=== PATIENT | female | born 1960 | race Two or more races ===

== ENCOUNTER → 2024-09-03 | Outpatient (CLI) | payer OTHER, SELFPAY ==
[2024-09-03 10:35] LABS: Collection Type, Urine Clean Catch
[2024-09-03 11:15] LABS: Glucose Estimated Average 120 mg/dL (80-131); Hemoglobin A1C 5.8 % Hgb (4.8-6.0)
[2024-09-03 11:19] LABS: Bacteria,Urine Rare; Bilirubin,Urine Negative (Negative); Blood,Urine Negative (Negative); Clarity,Urine Clear (Clear/Hazy); Color,Urine Colorless (Lt Yel-Yel); Glucose, Urine Negative (Negative); Ketones,Urine Negative (Negative); Leukocyte Esterase,Urine Positive (Negative); Nitrite,Urine Negative (Negative); PH,Urine 6.5 (5.0-7.0); Protein,Urine Negative (Neg - Trace); RBC,Urine 1 /hpf (0-3); Specific Gravity,Urine 1.007 (1.001-1.035); Squamous Epithelial Cell,Urine 1 /hpf (0-5); Urobilinogen,Urine Negative mg/dL (0.0-1.0); WBC,Urine 5 /hpf (0-5)
[2024-09-03 11:20] LABS: Follicle Stimulating Hormone 95.16 mIU/mL (See Note)
[2024-09-03 11:22] LABS: Alanine Aminotransferase 20 U/L (10-49); Albumin, Serum 4.3 gm/dL (3.4-4.8); Albumin/Globulin Ratio 1.9 (1.2-2.2); Alkaline Phosphatase 57 U/L (46-116); Anion Gap 7 (7-16); Aspartate Amino Transferase 17 U/L (0-34); BUN/Creatinine Ratio 15 Ratio (12-20); Bilirubin,Total 0.5 mg/dL (0.3-1.2); Blood Urea Nitrogen 12 mg/dL (9-23); Calcium 9.6 mg/dL (8.3-10.6); Calcium (Corrected) 9.6 mg/dL (8.5-10.1); Carbon Dioxide 28.7 mMol/L (20.0-31.0); Cardiac Risk Estimate 2.1 RATIO (3.7-5.6); Chloride 106 mMol/L (98-107); Cholesterol 118 mg/dL (132-200); Creatinine (Component) 0.8 mg/dL (0.6-1.3); Globulin 2.3 gm/dL (2.3-3.5); Glucose 93 mg/dL (74-106); HDL Cholesterol 56 mg/dL (40-60); LDL Cholesterol,Calculated 41 mg/dL (0-130); Osmolality,Calculated 282 (275-295); Potassium 4.1 mMol/L (3.4-5.1); Sodium 142 mMol/L (136-145); Total Protein 6.6 gm/dL (5.7-8.2); Triglycerides 105 mg/dL (30-150); eGFR > 60 See Note
[2024-09-21 06:40] LABS: Estrogen, Total, Serum* 56 pg/mL; Luteinizing Hormone* 33.1 mIU/mL; Progesterone,LC/MS* <0.1 ng/mL
== END | disposition home or self-care (01) ==
LOC: COPL 09:41
PROVIDERS: PCP Internal Medicine; Referring Provider Internal Medicine; Visit Provider Internal Medicine
DX: E11.9 Type 2 diabetes mellitus without complications (principal); E78.5 Hyperlipidemia, unspecified; I10 Essential (primary) hypertension
CPT/HCPCS: 36415; 80053; 80061; 81001; 82672; 83001; 83002; 83036; 84144

== ENCOUNTER 2024-10-25 07:57 | Emergency (ER) | payer OTHER, SELFPAY ==
[2024-10-25 08:09] VITALS: BP 107/66; PULSE 78; RESP 17; TEMP 36.8; O2SAT 97
--- NOTE | 2024-10-25 08:12 | XR_ITS ---
Examination: CT pelvis without intravenous contrast. 2-D sagittal and coronal reconstructions. Date and time of exam:October 25, 2024 0837 hours INDICATIONS: Patient fell today with injury of the pelvis, sacrococcygeal pain CTDI: vol (mGy) :8.22 DLP: (mGycm) : 244 Technique: Multiple 3 mm axial sections of the pelvis have been obtained with the 64 slice high resolution scanner. 2-D sagittal and coronal reconstructions. Low dose protocols were performed. One or more of the following dose reduction techniques were used; automated exposure control, adjustment of the mA and/or KV according to patient size, use of iterative reconstruction technique. Findings: Significant osteopenia Fracture with angulation fifth sacral segment without significant displacement, sagittal image 150 Iliac bones acetabular regions anterior rami and hips appear intact IMPRESSION: Fracture with angulation fifth sacral segment
--- NOTE | 2024-10-25 08:12 | XR_ITS ---
Examination: Knee, left , 3 views Technique: Knee AP, lateral, oblique 3 views Date and time of exam: October 25, 2024 0947 hours INDICATIONS: Patient fell 5 days ago with injury to the knee, knee pain. FINDINGS: No fracture or dislocation No foreign body IMPRESSION: No fracture or dislocation
--- NOTE | 2024-10-25 10:04 | PD.EDFALL ---
ED Fall Injury RME/HPI General Chief Complaint: Fall Stated Complaint: FALL 2 DAYS AGO; PAIN L) KNEE & LOWER BACK Time Seen by Provider: 10/25/24 08:12 Arrival date/time: 10/25/24 07:57 64-year-old female presents emergency department today with complaints of ground-level fall 2 days ago patient reports pain to her left knee as well as her coccyx region. Patient reports no abdominal pain no fever no dysuria no hematuria Limitations: no limitations Related Data Home Medications ?Medication ?Instructions ?Recorded ?Confirmed alprazolam 1 mg tablet (Xanax) 0.25 mg PO QID PRN ANXIETY #0 tabs 01/09/14 levothyroxine 100 mcg tablet 100 mcg PO ACBR THYROID #0 tabs 01/09/14 (Synthroid) methylphenidate HCl 20 mg tablet 40 mg PO BID #0 tabs 01/09/14 (Ritalin) bupropion HCl 150 mg tablet,12 hr 150 mg PO QDAY ##0 05/19/14 sustained-release (Wellbutrin SR) risperidone 0.25 mg tablet 0.25 mg PO BID #0 tabs 05/26/14 (Risperdal) diphenhydramine HCl 50 mg capsule 50 mg PO Q6HR PRN SHIVERING #0 caps 08/17/14 Previous Rx's ?Medication ?Instructions ?Recorded hydrocodone 5 mg-acetaminophen 325 1 tab PO BID PRN pain #10 tabs 10/25/24 mg tablet ibuprofen 600 mg tablet 600 mg PO Q6H #30 tabs 10/25/24 Allergies Allergy/AdvReac Type Severity Reaction Status Date / Time latex Allergy Intermediate RASH Verified 10/25/24 08:04 risperidone Allergy Intermediate SHAKING Verified 10/25/24 08:04 Adhesives Allergy Mild REDNESS Uncoded 10/25/24 08:04 Review of Systems Review of Systems Systems Reviewed: All systems reviewed, normal except as documented Constitutional Constitutional: Reports system reviewed and no additional complaints, except as documented, Denies fever(s) and Denies headache(s) Eyes Eyes: Reports system reviewed and no additional complaints, except as documented and Denies blurry vision ENT Ears, Nose, Mouth, and Throat: Reports system reviewed and no additional complaints, except as documented, Denies headache(s), Denies nasal congestion and Denies nasal discharge Cardiovascular Cardiovascular: Reports system reviewed and no additional complaints, except as documented, Denies chest pain and Denies dyspnea Respiratory Respiratory: Reports system reviewed and no additional complaints, except as documented, Denies chest congestion, Denies cough and Denies dyspnea Gastrointestinal Gastrointestinal: Reports system reviewed and no additional complaints, except as documented and Denies abdominal pain Musculoskeletal Musculoskeletal: Reports system reviewed and no additional complaints, except as documented, Reports arthralgias and Denies deformity Integumentary/Breasts Skin/Breast: Reports system reviewed and no additional complaints, except as documented and Denies rash Neurologic Neurologic: Reports system reviewed and no additional complaints, except as documented, Reports as per HPI and Denies headache(s) Past Medical History Social History SMOKING STATUS: Never smoker ED Exam General Limitations: Present no limitations General appearance: Present alert and in no apparent distress Head Head exam: Present atraumatic, normocephalic and normal inspection Eye Eye exam: Present normal appearance, PERRL and EOMI; Absent conjunctival injection ENT ENT exam: Present normal exam, normal oropharynx and mucous membranes moist Neck Neck exam: Present normal inspection, full ROM and trachea midline Chest Chest inspection: Present normal inspection and symmetric chest wall rise Respiratory Respiratory exam: Present normal lung sounds bilaterally Cardiovascular Cardiovascular exam: Present regular rate, normal rhythm and normal heart sounds Abdominal Exam Abdominal exam: Present soft and normal bowel sounds; Absent distention or tenderness Extremities Exam Extremities exam: Present full ROM, tenderness and normal capillary refill; Absent pedal edema, joint swelling or calf tenderness Back Exam Back exam: Present normal inspection and full ROM Back 1 view image:  1. Pain Neurological Exam Neurological exam: Present alert, oriented X3 and CN II-XII intact Psychiatric Psychiatric exam: Present normal affect and normal mood Skin Skin exam: Present warm, dry, intact and normal color Course Quality Measures none Orders Category Date Time Status CT pelvis wo con Stat Exams 10/25/24 08:12 Completed XR knee LT 3V Stat Exams 10/25/24 08:12 Completed Vital Signs Vital signs: Vital Signs Temperature 98.2 F 10/25/24 08:09 Pulse Rate 78 10/25/24 08:09 Respiratory Rate 17 10/25/24 08:09 Blood Pressure 107/66 10/25/24 08:09 Pulse Oximetry (%) 97 10/25/24 08:09 Oxygen Delivery Method Room Air 10/25/24 08:09 O2 saturation 97% room air within the limits Fall MDM Narrative MDM Narrative:: 64-year-old female presents emergency department today with complaints of ground-level fall 2 days ago patient reports pain to her left knee as well as her coccyx region. Patient reports no abdominal pain no fever no dysuria no hematuria On exam patient well-appearing patient does not appear ill or toxic Imaging of the left knee and pelvis obtained patient does have sacral fracture consistent with patient's symptoms x-ray is negative Patient discharged home with pain medication Patient discharged home in no distress to follow-up with primary care doctor in the next 24 to 48 hours and for any worsening symptoms to return to the ER immediately Patient data External records reviewed:: [facility] previous records Clinical information provided by:: patient Social determinants that could affect healthcare access:: none Patient has the following chronic illnesses:: See history How is presenting disease/condition affected by chronic disease/condition?: uneffected by Evaluation data The following diagnostics were reviewed and interpreted by me:: radiology exam(s) Lab and/or radiology exams considered but not ordered:: Radiology obtain Interpretation Summary: Reviewed by me Medications / Prescriptions Medications or Prescriptions considered but not ordered:: Given Medication administrations:: Given Consultations Consultation(s) initiated? (list below): No Diagnosis Fall Differential Diagnosis: other (Coccyx fracture, knee sprain, knee fracture) Most likely diagnosis given after review of the tests above:: Coccyx fracture, knee sprain Admission Indicated Admission indicated?: not indicated Admission Request Was there a request for admission?: No Disposition Plan Disposition Plan: Discharge Discharge Attestation Discharge Attestation: The patient and all family members were given an opportunity to ask questions and understood the discharge instructions. Discharge instructions specifically effects, indications for sooner follow up or return to the emergency department, and the expected course of current diagnosis. Patient condition: Stable Discharge Plan Plan Patient Disposition: HOME (Self Care) Disposition Comment: Stable Prescriptions/Referrals Prescriptions/Med Rec: New hydrocodone-acetaminophen 5-325 mg tablet 1 tab PO BID MDD 10 PRN (Reason: pain) Qty: 10 0RF ibuprofen 600 mg tablet 600 mg PO Q6H Qty: 30 0RF No Action alprazolam [Xanax] 1 MG tablet 0.25 mg PO QID PRN (Reason: ANXIETY) Qty: 0 levothyroxine [Synthroid] 100 MCG tablet 100 mcg PO ACBR Qty: 0 methylphenidate HCl [Ritalin] 20 MG tablet 40 mg PO BID Qty: 0 bupropion HCl [Wellbutrin SR] 150 MG tablet extended release 12 hr 150 mg PO QDAY Qty: 0 risperidone [Risperdal] 0.25 MG tablet 0.25 mg PO BID Qty: 0 diphenhydramine HCl 50 MG capsule 50 mg PO Q6HR PRN (Reason: SHIVERING) Qty: 0 Referrals: Rowdy Valdez MD [Primary Care Provider] - 10/26/24 Problem List Clinical Impression: Closed fracture of sacrum Patient/Caregiver Discharge Instructions Education Materials: How Bones Heal Additional Instructions: Please follow up with your primary care doctor in the next 24-48hrs for any worsening symptoms return here immediately Print Language: Mozambican Stand Alone Forms: Chelle Award Info., Patient Portal Info Letter PA/EPIC APPLICATION COORDINATOR Supervising Physician PA/EPIC APPLICATION COORDINATOR Supervising Physician: Dr. cruz
== END 2024-10-25 11:05 | disposition home or self-care (01) ==
PROVIDERS: Emergency Provider Family Medicine; PCP Internal Medicine
DX: S32.10XA Unspecified fracture of sacrum, initial encounter for closed fracture (principal); M25.562 Pain in left knee; W18.30XA Fall on same level, unspecified, initial encounter
CPT/HCPCS: 72192; 73562; 99284

== ENCOUNTER → 2024-12-21 | Outpatient (CLI) | payer OTHER, SELFPAY ==
--- NOTE | 2024-12-21 10:35 | XR_ITS ---
Examination: Knee, left , 3 views Technique: Knee AP, lateral, oblique 3 views Date and time of exam: December 21, 2024 1139 hours INDICATIONS: Patient fell 15 days ago with injury to the knee, knee pain. FINDINGS: No fracture or dislocation No foreign body IMPRESSION: No fracture or dislocation
== END | disposition home or self-care (01) ==
PROVIDERS: PCP Internal Medicine; Referring Provider Internal Medicine; Visit Provider Internal Medicine
DX: M25.562 Pain in left knee (principal)
CPT/HCPCS: 73562

== ENCOUNTER → 2025-02-17 | Outpatient (CLI) | payer OTHER, SELFPAY ==
[2025-02-17 10:59] LABS: Collection Type, Urine Clean Catch
[2025-02-17 11:16] LABS: Basophils # (Auto) 0.0 Thou/mm3 (0.0-0.2); Basophils % (Auto) 0 % (0-2.5); Eosinophils # (Auto) 0.2 Thou/mm3 (0.0-0.5); Eosinophils % (Auto) 2 % (0-10); Hematocrit 43.7 % (36.0-46.0); Hemoglobin 15.1 g/dL (12.0-16.0); Immature Granulocytes Auto 0.03 Thou/mm3 (0.00-0.00); Lymphocytes # (Auto) 3.4 Thou/mm3 (1.0-4.8); Lymphocytes % (Auto) 41 % (10-50); Mean Corpuscular HGB Conc 34.6 g/dl (31.0-37.0); Mean Corpuscular Hemoglobin 31.8 pg (25.0-35.0); Mean Corpuscular Volume 92 fL (80-100); Monocytes # (Auto) 0.7 Thou/mm3 (0.0-0.8); Monocytes % (Auto) 8 % (0-12); Neutrophils # (Auto) 4.0 Thou/mm3 (1.8-7.7); Neutrophils % (Auto) 48 % (37-80); Nucleated Red Blood Cell # 0.00 Thou/mm3 (0.00-0.00); Nucleated Red Blood Cell % 0 /100 WBC (0); Platelet Count 191 Thou/mm3 (140-440); RDW Standard Deviation 40.5 fL (36.4-46.3); Red Blood Count 4.75 Miln/mm3 (4.00-5.20); White Blood Count 8.2 Thou/mm3 (3.6-11.0)
[2025-02-17 11:26] LABS: Bilirubin,Urine Negative (Negative); Blood,Urine Negative (Negative); Clarity,Urine Clear (Clear/Hazy); Color,Urine Colorless (Lt Yel-Yel); Glucose, Urine Negative (Negative); Ketones,Urine Negative (Negative); Leukocyte Esterase,Urine Positive (Negative); Nitrite,Urine Negative (Negative); PH,Urine 7.0 (5.0-7.0); Protein,Urine Negative (Neg - Trace); RBC,Urine < 1 /hpf (0-3); Specific Gravity,Urine 1.007 (1.001-1.035); Squamous Epithelial Cell,Urine 1 /hpf (0-5); Urobilinogen,Urine Negative mg/dL (0.0-1.0); WBC,Urine 1 /hpf (0-5)
[2025-02-17 11:55] LABS: Alanine Aminotransferase 25 U/L (10-49); Albumin, Serum 4.5 gm/dL (3.4-4.8); Albumin/Globulin Ratio 1.9 (1.2-2.2); Alkaline Phosphatase 55 U/L (46-116); Anion Gap 9 (7-16); Aspartate Amino Transferase 20 U/L (0-34); BUN/Creatinine Ratio 11 Ratio (12-20); Bilirubin,Total 0.7 mg/dL (0.3-1.2); Blood Urea Nitrogen 10 mg/dL (9-23); Calcium 10.3 mg/dL (8.3-10.6); Calcium (Corrected) 10.3 mg/dL (8.5-10.1); Carbon Dioxide 29.0 mMol/L (20.0-31.0); Chloride 103 mMol/L (98-107); Creatinine (Component) 0.9 mg/dL (0.6-1.3); Globulin 2.4 gm/dL (2.3-3.5); Glucose 97 mg/dL (74-106); Osmolality,Calculated 280 (275-295); Potassium 5.1 mMol/L (3.4-5.1); Sodium 141 mMol/L (136-145); Thyroid Stimulating Hormone 3.88 uIU/mL (0.55-4.78); Total Protein 6.9 gm/dL (5.7-8.2); eGFR > 60 See Note
[2025-02-17 14:25] LABS: Cholesterol 123 mg/dL (132-200); Triglycerides 122 mg/dL (30-150)
[2025-02-17 14:56] LABS: Cardiac Risk Estimate 2.1 RATIO (3.7-5.6); HDL Cholesterol 58 mg/dL (40-60); LDL Cholesterol,Calculated 41 mg/dL (0-130)
[2025-02-17 15:02] LABS: Glucose Estimated Average 128 mg/dL (80-131); Hemoglobin A1C 6.1 % Hgb (4.8-6.0)
== END | disposition home or self-care (01) ==
LOC: COPL 10:13
PROVIDERS: PCP Internal Medicine; Referring Provider Internal Medicine; Visit Provider Internal Medicine
DX: Z00.00 Encounter for general adult medical examination without abnormal findings (principal); E11.9 Type 2 diabetes mellitus without complications; I10 Essential (primary) hypertension; E78.5 Hyperlipidemia, unspecified; E03.9 Hypothyroidism, unspecified
CPT/HCPCS: 36415; 80053; 80061; 81001; 83036; 84443; 85025

== ENCOUNTER → 2025-03-16 | Outpatient (CLI) | payer OTHER, SELFPAY ==
--- NOTE | 2025-03-16 12:20 | XR_ITS ---
Examination: Bone densitometry Date and time of exam:March 16, 2025, 1228 hours INDICATIONS: Menopause age 47, diagnosis diabetes, levothyroxine 49 years Technique: Lumbar spine and hip total bone mineralization values of an calculated. Peak reference and age match control results have been displayed. Findings: Lumbar spine total bone mineralization is1.075 gm/cm2. This is 0.3 standard deviations above peak reference. This is 2. standard deviations above age-matched controls. Hip total bone mineralization is 1.011 gm/cm2 This is 0.4 standard deviations above peak reference. This is 1.5 standard deviations above age-matched controls Impression: There is normal mineralization based on lumbar spine measurements. There is normal mineralization based on hip measurements Lumbar mineralization is increased 2.4% compared with March 14, 2022 Hip mineralization is decreased 0.4% compared with 03/14/2022
== END | disposition home or self-care (01) ==
LOC: CDIM 11:47
PROVIDERS: Referring Provider Internal Medicine; Visit Provider Internal Medicine
DX: M81.0 Age-related osteoporosis without current pathological fracture (principal)
CPT/HCPCS: 77080

== ENCOUNTER → 2025-03-29 | Outpatient (CLI) | payer OTHER, SELFPAY ==
--- NOTE | 2025-03-29 10:30 | XR_ITS ---
Exam: MRI knee without contrast, left Date and time of exam: March 29, 2025 1039 hours INDICATIONS: Patient fell October 29, 2024 with injury to the knee followed bilateral posterior knee pain joint locking swelling stiffness Technique: Multiple axial, coronal, and sagittal sections on the knee have been obtained. T2-Weighted sagittal, fat-suppressed images, TR 3,500, TE 62, T2 weighted coronal fat-saturated images, TR 3,500, TE 62 Proton density sagittal sections, TR 1800, TE 31. T-1 weighted coronal images, TR 524, TE 13.0 Findings: Medial meniscus anterior horn intact. Medial meniscus, body intact. Posterior horn medial meniscus horizontal linear tear communicating inferior articular surface. Lateral meniscus anterior horn is intrasubstance degeneration intact Lateral meniscus, body complex tear replacing the body of the lateral meniscus Posterior horn lateral meniscus complex tear replacing the body of the posterior meniscus Anterior cruciate ligament mild sprain Posterior cruciate ligament appears intact. Knee effusion is moderate with suprapatellar joint plica Quadriceps and patellar tendons appear intact. There is no evidence of tendinosis. Inflammatory change or fracture of Hoffa's fat pad is not seen. Medial patellar facet demonstrates moderate thinning. Lateral patellar facet cartilage demonstrates moderate thinning. Trochlear cartilage demonstrates moderate thinning. Marrow signal adequate. Medial collateral ligament appears intact. No meniscocapsular separation is seen. Illiotibial band and fibular collateral ligament are intact. Biceps femoris tendons appear intact. Medial femoral condylar articular cartilage demonstrates mild thinning. Lateral femoral condylar articular cartilage demonstratesmoderate thinning. Tibial plateau cartilage demonstrates moderate lateral thinning. Impression: Extensive medial lateral meniscus tears Mild sprain anterior cruciate ligament
== END | disposition home or self-care (01) ==
LOC: SMRI 09:55
PROVIDERS: PCP Internal Medicine; Referring Provider Internal Medicine; Visit Provider Internal Medicine
DX: S83.242A Other tear of medial meniscus, current injury, left knee, initial encounter (principal); S83.282A Other tear of lateral meniscus, current injury, left knee, initial encounter; W19.XXXA Unspecified fall, initial encounter
CPT/HCPCS: 73721

== ENCOUNTER 2025-05-06 11:55 | Day surgery (SDC) | payer OTHER, SELFPAY ==
[2025-05-05 12:25] VITALS: BMI 26.6
[2025-05-06] VITALS (9 sets, daily range): BP systolic 132–154; BP diastolic 71–90; PULSE 60–83; RESP 16–20; TEMP 36.3–36.4; O2SAT 94–100; BMI 25.9
[2025-05-06] MEDS: SODIUM CHLORIDE 0.9% 500 ML 500 ML 20 ML IV (13:36)
[2025-05-06] MEDS: MIDAZOLAM INJ 1 MG/ML VIAL 2 ML (ASD USE ONLY) 2 MG IVP (13:41)
[2025-05-06] MEDS: fentaNYL CIT INJ 50 mCg/ML AMP 2ML (ASD USE ONLY) IVP (13:41)
--- NOTE | 2025-05-06 14:49 | SUR.PHASEII ---
1425 Pt more awake and alert. Denies pain or N/V. Abd soft, no rectal bleeding seen. Lucio PO fluids. 1437 Pt assessment unchanged. No complaints. Amb with steady gait. assisting with pt getting dressed. DC instructions given. Pt and speak Macedonian and Iraqi-request dc instruction papers to be in Iraqi. Both state understanding. Pt meets dc criteria-to home.
== END 2025-05-06 14:37 | disposition home or self-care (01) ==
PROVIDERS: PCP Internal Medicine; Referring Provider Specialist; Visit Provider Specialist
PROC: 0DBE8ZX Excision of Large Intestine, Via Natural or Artificial Opening Endoscopic, Diagnostic (ICD-10-PCS; CPT 45380; principal; 2025-05-06 13:00)
DX: Z12.11 Encounter for screening for malignant neoplasm of colon (principal); K64.9 Unspecified hemorrhoids
CPT/HCPCS: G0121; A4649; J1200; J2250; J3010; J7999

== ENCOUNTER 2025-05-26 12:54 | Outpatient (AMB) | payer OTHER, SELFPAY ==
[2025-05-26 13:12] VITALS: BP 121/78; PULSE 84; RESP 18; TEMP 36.2; O2SAT 97; BMI 26.5
--- NOTE | 2025-05-26 13:12 | ORTHONT_ITS ---
Vital signs 05/26/25 13:12 Height 1.65 m Height Method Stated Weight 72.291 kg Weight Measurement Method Standing Scale BMI 26.5 BP 121/78 Blood Pressure Source Automatic Cuff Blood Pressure Location Left Upper Arm Position Sitting Respiration 18 Pulse 84 Pulse Source Monitor Temp 97.2 F Temp Source Temporal Artery Scan Pulse Oximetry (%) 97 Oxygen Delivery Method Room Air Med/Allergies Allergies & Medications Allergies latex Allergy (Intermediate, Verified 05/26/25 13:12) RASH risperidone Allergy (Intermediate, Verified 05/26/25 13:12) SHAKING Adhesives Allergy (Mild, Uncoded 05/26/25 13:12) REDNESS Medication Reconciliation alprazolam 1 mg tablet (Xanax) 0.25 mg PO QID PRN ANXIETY #0 tabs 01/09/14 [History Confirmed 05/26/25] Held on 05/06/25. Instructions: Resume on 04/06/25. levothyroxine 100 mcg tablet (Synthroid) 100 mcg PO ACBR THYROID #0 tabs 01/09/14 [History Confirmed 05/26/25] atorvastatin 20 mg tablet 20 mg PO QDAY 05/06/25 [History Confirmed 05/26/25] gabapentin 300 mg capsule 300 mg PO Q8H 05/06/25 [History Confirmed 05/26/25] lisinopril 2.5 mg tablet 2.5 mg PO QDAY 05/06/25 [History Confirmed 05/26/25] lumateperone 42 mg capsule (Caplyta) 42 mg PO QDAY 05/06/25 [History Confirmed 05/26/25] quetiapine 50 mg tablet 50 mg PO HS 05/06/25 [History Confirmed 05/26/25] semaglutide 0.25 mg or 0.5 mg (2 mg/3 mL) subcutaneous pen injector (Ozempic) 0.25 mg subcut QWEEK 05/06/25 [History Confirmed 05/26/25] vortioxetine 20 mg tablet (Trintellix) 20 mg PO QDAY 05/06/25 [History Confirmed 05/26/25] meloxicam 7.5 mg tablet 7.5 mg PO QDAY #45 tabs 05/26/25 [Rx] Exam Exam Patient is in no acute distress and is cooperative with the examination today. Breathing is nonlabored. Patient has a normal mood and affect. Bilateral extremities were evaluated and demonstrates sensation intact to light touch. Palpable pedal pulses are present. No significant edema is present. Bilateral hips were examined. The patient has no pain with log roll of the hips. Internal rotation to 30 degrees and external rotation to 30 degrees is painless. Negative FADIR. Right knee was examined today. The right knee is in reasonable alignment. Range of motion from 0-120 degrees. Knee is stable to varus and valgus as well as AP translation with <5mm. Patient has a negative McMurrays. There is no pain with patellofemoral compression and no crepitus noted. The knee is nontender to palpation. Left knee was examined today. The left knee is in varus alignment. Range of motion from 0-115 degrees. Knee is stable to varus and valgus as well as AP translation with <5mm. Patient has a negative McMurrays. There is no pain with patellofemoral compression and no crepitus noted. The knee is tender to palpation medially. Left knee x-rays demonstrate mild joint space narrowing. These are nonweightbearing films. MRI demonstrates medial and lateral meniscal tears Assessment and Plan Problem List (1) Arthritis of left knee: Status: Acute Plan: ASSESSMENT AND PLAN 1. Left knee pain: The MRI results indicate bilateral meniscal tears, likely due to underlying arthritis. Pain is reported as 6 out of 10, and it has been worsening over the past 7 months. Ibuprofen provides some relief, and no prior hip or knee surgery has been performed. The patient was informed that 80% to 90% of meniscal tears improve without surgical intervention. An anti-inflammatory medication will be initiated for arthritis management. A home exercise program will be provided, as the patient prefers to do exercises at home rather than attending physical therapy. If symptoms persist, a targeted injection administered by a surgeon may be considered. The patient was advised that injections performed by surgeons might offer better relief due to precise administration. Risks and benefits of the injection were discussed, emphasizing that previous injections provided only one week of relief. Surgery is not recommended at this time, as most meniscal tears improve without it. Recommend knee cortisone injection as patient would like to proceed with conservative treatment at this time. The risks and benefits of the procedure were reviewed with the patient and patient gave verbal consent to continue with the procedure. Procedure: performed by Dr. Stanley Using sterile technique the left knee was thoroughly prepped with alcohol, and approximately 1 cc of Depo-Medrol 80mg/mL and 4 cc of 0.2% ropivacaine was injected without resistance into the medial tibial femoral joint space. The patient tolerated the procedure. 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 ([id number]) MA Intake Visit Data Collection New Patient or Established: New Patient (never been to [facility]) Reason for Visit:: LEFT KNEE MENISCUS TEAR Seen by Clinical Staff ONLY (RN/MA): No Table Filler Required: Yes PCP or OBGYN visit in last 3 months: Yes Hx Now: No Do You Feel Safe at Home: Yes Authorities Contacted: N/A Questionairres Past Medical History Past Medical History Have you ever been diagnosed with any of the following: Neurological Problems Seizures: No Cardiology Problems Hypercholesterolemia: Yes Congestive Heart Failure: No Hypertension: Yes Respiratory Problems Chronic Obstructive Pulmonary Disease (COPD): No Asthma: Yes (allergy induced- controlled) Genital/Urinary Problems Renal Disease: No Musculoskeletal Problems Fibromyalgia: Yes Fractures: Yes (sacral area in october 2024) Endocrine Problems Diabetes Mellitus Type 1: No Diabetes Mellitus Type 2: Yes Hypothyroidism: Yes Blood Problems Anemia: No Psychologic Problems Depression: Yes Anxiety: Yes Other Problems Falls: Yes Blood Transfusions: No Blood Transfusion Reaction: No Anesthesia Reactions: No Cancer: No Subjective Visit Visit for: new patient and knee Immunization / Flu Flu Vaccine in the Last 12 Months: Yes Flu Vaccine Exclusion Criteria: Already Received History of Present Illness Chief complaint: left knee pain Date of injury / onset of symptoms: OCTOBER 2024 PT FELL Personal History Occupation: RETIRED Additional comments: HISTORY OF PRESENT ILLNESS IWally, have obtained verbal consent from the patient, to be recorded during this encounter which may include, but not limited to, medical history, examination, treatment plans, and relevant health information.? Patient was informed that recording will be read and reviewed by myself before inclusion in the medical chart. The patient presents for evaluation of left knee pain. She is accompanied by a turn supervisor. She experienced a fall in 10/2024, which resulted in a sensation of something tearing within her knee. The patient cannot recall the specific diagnosis. She has undergone recent x-rays while in a supine position and received one injection post-fall, which provided relief for only a week. She has not engaged in physical therapy. The patient reports no history of hip or knee surgery. She rates her current pain level as 6 out of 10, describing it as moderate and localized to the back and side of her left knee. The pain has been progressively worsening over the past 7 months. She has not taken meloxicam or Celebrex. Her renal function is reported to be normal. The patient expresses a preference for home exercises over bi-weekly therapy sessions. She has been managing the pain with ibuprofen, which continues to be effective. She is currently on gabapentin for fibromyalgia. Pain Pain level (0-10): 6 Pain duration: ALL DAY Pain location: inside (medial), anterior and posterior Pain quality: dull and other (specify) (SWELLING) Pain timing: increases with activity Associated signs & symptoms: weakness Ambulatory data Ambulatory device: none Treatments Number of previous injections: 1 Improvement with previous injections: No Number of Physical Therapy sessions: 0 Improvement with PT: No Improvement with NSAIDS: no (IBUPROFEN) Review of Systems Review of Systems: All systems negative unless otherwise noted in HPI.
== END 2025-05-26 13:24 | disposition home or self-care (01) ==
LOC: HODSRG 12:54
PROVIDERS: PCP Internal Medicine; Referring Provider Internal Medicine; Supervising Provider Orthopaedic Surgery Adult Reconstructive Orthopaedic Surgery; Visit Provider Orthopaedic Surgery Adult Reconstructive Orthopaedic Surgery
DX: M17.12 Unilateral primary osteoarthritis, left knee (principal); M25.562 Pain in left knee; M79.7 Fibromyalgia; I10 Essential (primary) hypertension
CPT/HCPCS: 20610; 99204; J1010; J2795; G0463

== ENCOUNTER → 2025-07-05 | Outpatient (CLI) | payer OTHER, SELFPAY ==
[2025-07-05 10:12] LABS: Collection Type, Urine Clean Catch; RBC,Urine 0 /hpf (0-3)
[2025-07-05 10:28] LABS: Basophils # (Auto) 0.0 Thou/mm3 (0.0-0.2); Basophils % (Auto) 0 % (0-2.5); Eosinophils # (Auto) 0.1 Thou/mm3 (0.0-0.5); Eosinophils % (Auto) 2 % (0-10); Hematocrit 39.8 % (36.0-46.0); Hemoglobin 13.3 g/dL (12.0-16.0); Immature Granulocytes Auto 0.01 Thou/mm3 (0.00-0.00); Lymphocytes # (Auto) 2.0 Thou/mm3 (1.0-4.8); Lymphocytes % (Auto) 38 % (10-50); Mean Corpuscular HGB Conc 33.4 g/dl (31.0-37.0); Mean Corpuscular Hemoglobin 31.3 pg (25.0-35.0); Mean Corpuscular Volume 94 fL (80-100); Monocytes # (Auto) 0.5 Thou/mm3 (0.0-0.8); Monocytes % (Auto) 10 % (0-12); Neutrophils # (Auto) 2.5 Thou/mm3 (1.8-7.7); Neutrophils % (Auto) 49 % (37-80); Nucleated Red Blood Cell # 0.00 Thou/mm3 (0.00-0.00); Nucleated Red Blood Cell % 0 /100 WBC (0); Platelet Count 171 Thou/mm3 (140-440); RDW Standard Deviation 41.8 fL (36.4-46.3); Red Blood Count 4.25 Miln/mm3 (4.00-5.20); White Blood Count 5.1 Thou/mm3 (3.6-11.0)
[2025-07-05 10:46] LABS: Glucose Estimated Average 120 mg/dL (80-131); Hemoglobin A1C 5.8 % Hgb (4.8-6.0)
[2025-07-05 10:47] LABS: Bacteria,Urine Rare; Bilirubin,Urine Negative (Negative); Blood,Urine Negative (Negative); Clarity,Urine Clear (Clear/Hazy); Color,Urine Colorless (Lt Yel-Yel); Glucose, Urine Negative (Negative); Ketones,Urine Negative (Negative); Leukocyte Esterase,Urine Positive (Negative); Nitrite,Urine Negative (Negative); PH,Urine 6.5 (5.0-7.0); Protein,Urine Negative (Neg - Trace); Specific Gravity,Urine 1.008 (1.001-1.035); Squamous Epithelial Cell,Urine 1 /hpf (0-5); Urobilinogen,Urine Negative mg/dL (0.0-1.0); WBC,Urine 6 /hpf (0-5)
[2025-07-05 10:51] LABS: Alanine Aminotransferase 20 U/L (10-49); Albumin, Serum 4.4 gm/dL (3.4-4.8); Albumin/Globulin Ratio 1.9 (1.2-2.2); Alkaline Phosphatase 49 U/L (46-116); Anion Gap 7 (7-16); Aspartate Amino Transferase 19 U/L (0-34); BUN/Creatinine Ratio 14 Ratio (12-20); Bilirubin,Total 0.4 mg/dL (0.3-1.2); Blood Urea Nitrogen 11 mg/dL (9-23); Calcium 9.4 mg/dL (8.3-10.6); Calcium (Corrected) 9.4 mg/dL (8.5-10.1); Carbon Dioxide 30.8 mMol/L (20.0-31.0); Cardiac Risk Estimate 1.9 RATIO (3.7-5.6); Chloride 108 mMol/L (98-107); Cholesterol 110 mg/dL (132-200); Creatinine (Component) 0.8 mg/dL (0.6-1.3); Globulin 2.3 gm/dL (2.3-3.5); Glucose 93 mg/dL (74-106); HDL Cholesterol 57 mg/dL (40-60); LDL Cholesterol,Calculated 42 mg/dL (0-130); Osmolality,Calculated 289 (275-295); Potassium 4.2 mMol/L (3.4-5.1); Sodium 146 mMol/L (136-145); Thyroid Stimulating Hormone 0.06 uIU/mL (0.55-4.78); Total Protein 6.7 gm/dL (5.7-8.2); Triglycerides 55 mg/dL (30-150); eGFR > 60 See Note
[2025-07-05 10:51] LABS: Creatinine MALB Rnd Ur 35 mg/dL (30-125); Microalbumin, Random Urine < 3 mg/L (0-300)
== END | disposition home or self-care (01) ==
LOC: COPL 09:04
PROVIDERS: PCP Internal Medicine; Referring Provider Internal Medicine; Visit Provider Internal Medicine
DX: Z00.00 Encounter for general adult medical examination without abnormal findings (principal); E11.9 Type 2 diabetes mellitus without complications; I10 Essential (primary) hypertension; E78.5 Hyperlipidemia, unspecified; E03.9 Hypothyroidism, unspecified
CPT/HCPCS: 36415; 80053; 80061; 81001; 82043; 82570; 83036; 84443; 85025